=== PATIENT | female | born 1990 | race Two or more races ===

== ENCOUNTER 2016-05-05 00:40 | Emergency (ER) | payer MEDICAID ==
[~2016-05-05] VITALS: Ht 165.1 cm; Wt 61.2 kg
[2016-05-05 00:59] VITALS: BP 127/76
== END 2016-05-05 03:04 | disposition left against medical advice (07) ==
LOC: ER 00:42
DX: R20.0 Anesthesia of skin (principal); Z53.21 Procedure and treatment not carried out due to patient leaving prior to being seen by health care provider